=== PATIENT | female | born 1940 | race Caucasian/White ===

== ENCOUNTER 2019-07-08 17:17 | Emergency (ER) | payer MEDICARE, OTHER ==
[2019-07-08] MEDS ORDERED: Acetaminophen TAB* 325 MG PO ONE (17:43)
[2019-07-08] MEDS ORDERED: Ibuprofen TAB* 600 MG PO ONE (17:43)
--- NOTE | 2019-07-08 17:43 | ED ---
Lower Extremity - HPI Summary HPI Summary: This patient is a 79 year old female presenting to [facility] with a chief complaint of right knee pain since 5 hours ago. She states she walking up the stairs and her knee buckled and gave out. She states she has had swelling or pain to her right knee since. She states she had prior minor discomfort in the knee, states she can put little wait onto it now. She rates her pain 8/10 in severity. She has a Hx of hypertension. - History of Current Complaint Chief Complaint: EDExtremityLower Stated Complaint: "RT KNEE INJURY PER PT" Time Seen by Provider: 07/08/19 17:31 Hx Obtained From: Patient Severity Initially: Moderate Severity Currently: Moderate Pain Intensity: 8 Pain Scale Used: 0-10 Numeric Associated Signs And Symptoms: Positive: Swelling, Knee Pain - Allergies/Home Medications Allergies/Adverse Reactions: Allergies Allergy/AdvReac Type Severity Reaction Status Date / Time No Known Allergies Allergy Verified 07/08/19 18:32 Home Medications: Home Medications Amlodipine Besylate [Norvasc] 10 mg PO DAILY 07/08/19 [History Confirmed ] Atenolol/Chlorthalidone [Atenolol/Chlorthalidone 50-25 mg-] 1 dose PO DAILY [History Confirmed 07/08/19] Lisinopril 20 mg PO BID 07/08/19 [History Confirmed 07/08/19] Sertraline* [Zoloft*] 50 mg PO DAILY 07/08/19 [History Confirmed 07/08/19] Spironolactone 25 mg PO DAILY 07/08/19 [History Confirmed 07/08/19] PMH/Surg Hx/FS Hx/Imm Hx Endocrine/Hematology History: Denies: Hx Bone Marrow Disease Cardiovascular History: Reports: Hx Hypertension - Cancer History Hx Chemotherapy: No Hx Radiation Therapy: No Infectious Disease History: No Infectious Disease History: Denies: Traveled Outside the [place] in Last 30 Days - Family History Known Family History: Positive: Non-Contributory - Social History Lives: With Family Alcohol Use: Occasionally Hx Substance Use: No Review of Systems Negative: Fever Positive: Other - knee pain All Other Systems Reviewed And Are Negative: Yes Physical Exam - Summary Physical Exam Summary: Constitutional: Well-developed, Well-nourished, Alert, Cooperative Skin: Warm, Dry HENT: Normocephalic; No Racoons eyes; No boudreaux's sign; No abrasion; No contusion; No hemotympanum; No maxilla facial tenderness or instability; Dentition are smooth; No dental trauma; No trismus Eyes: EOM normal, PERRL Neck: Trachea is midline. No stridor; No JVD; No step off; No posterior cervical spine tenderness Cardio: Rhythm regular, rate normal Heart sounds normal; Intact distal pulses; The pedal pulses are 2+ and symmetric. Radial pulses are 2+ and symmetric. Pulmonary/Chest wall: Effort normal; Breath sounds normal; Equal chest rise; No flail segment; No rib tenderness; No sternal tenderness Abd: Soft, Appearance normal. No distension; No tenderness; No palpable pulsatile mass; No Cullens sign; No Butts-Turners sign Musculoskeletal: Full ROM and no tenderness at hips, ankles, shoulders, elbows; No vertebral body tenderness; No paraspinal tenderness; No step off or deformity of the spine; Pelvis is stable to lateral compression and rock. Swelling and tenderness over the right knee. Limited ROM in both flexion and extension. Swelling worse over the medial aspect of the knee. No medial or lateral joint laxity. Negative anterior/posterior Drawer sign. DP/PT pulses 2+. Neuro: Alert, Oriented x3, Strength 5/5 all extremities. : No blood at urethral meatus Psych: Mood and affect Normal Triage Information Reviewed: Yes Vital Signs On Initial Exam: Initial Vitals Temp Pulse Resp BP Pulse Ox 98.8 F 74 16 141/68 98 07/08/19 17:20 07/08/19 17:20 07/08/19 17:20 07/08/19 17:20 07/08/19 17:20 Vital Signs Reviewed: Yes Diagnostics - Vital Signs Vital Signs Temp Pulse Resp BP Pulse Ox 07/08/19 17:20 98.8 F 74 16 141/68 98 - Laboratory Lab Statement: Any lab studies that have been ordered have been reviewed, and results considered in the medical decision making process. - Radiology Knee XR Radiology Interpretation Completed By: ED Physician Summary of Radiographic Findings: No fracture. Pending official radiologist report. Lower Extremity Course/Dx - Course Course Of Treatment: Patient is here after twisting her right knee. Patient had negative x-ray for fracture per my read. Patient likely has internal knee injury. Patient is placed in a knee immobilizer, given crutches, given orthopedic surgery f/u. - Diagnoses Provider Diagnoses: Knee sprain Discharge ED - Sign-Out/Discharge Documenting (check all that apply): Patient Departure - Discharge Patient Received Moderate/Deep Sedation with Procedure: No - Discharge Plan Condition: Stable Disposition: HOME Patient Education Materials: Knee Sprain (ED) Referrals: [facility] Orthopedic Services [Provider Group] Additional Instructions: Follow up with orthopedics. Return to ED with any new or worsening symptoms. Take Ibuprofen for your pain. - Billing Disposition and Condition Condition: STABLE Disposition: Home - Attestation Statements Document Initiated by Scribe: Yes Documenting Scribe: García Antony Provider For Whom Scribe is Documenting (Include Credential): Chinedu Wasserman MD Scribe Attestation: García Montoya scribed for Chinedu Wasserman MD on 07/08/19 at 1846. Scribe Documentation Reviewed: Yes Provider Attestation: The documentation as recorded by the García coffman accurately reflects the service I personally performed and the decisions made by Chinedu serrano MD Status of Scribe Document: Viewed
[2019-07-08 19:04] VITALS: BP 137/66
== END 2019-07-08 18:50 | disposition home or self-care (01) ==
LOC: ED 17:17
DX: S83.91XA Sprain of unspecified site of right knee, initial encounter (principal); X58.XXXA Exposure to other specified factors, initial encounter; Y92.89 Other specified places as the place of occurrence of the external cause; I10 Essential (primary) hypertension; Z79.899 Other long term (current) drug therapy
CPT/HCPCS: 99283; A9270-GY

== ENCOUNTER 2023-02-08 12:04 | Inpatient (IN) ==
[2023-02-08 14:12] LABS: ABS Lymphocytes 0.5 10^3/ul (1.0-4.8); ABS Monocytes 0.4 10^3/ul (0-0.8); ABS Neutrophils 4.6 10^3/ul (1.5-7.7); Eosinophil % 0.1 %; Hematocrit 39 % (35-47); Hemoglobin 12.8 g/dL (12.0-16.0); Lymphocyte % 9.1 %; Mean Corpuscular Hemoglobin 29 pg (27-31); Mean Corpuscular Hgb Conc 33 g/dL (31-36); Mean Corpuscular Volume 87 fL (80-97); Mean Platelet Volume 7.6 fL (7.4-10.4); Platelet Count 142 10^3/uL (150-450); Red Cell Distribution Width 15 % (10-15); White Blood Count 5.5 10^3/uL (3.5-10.8)
[2023-02-08 15:21] LABS: Albumin 3.8 g/dL (3.2-5.2); Albumin/Globulin Ratio 1.7 (1-3); Calcium 8.9 mg/dL (8.6-10.3); Creatinine, Serum 1.21 mg/dL (0.51-0.95); Globulin 2.2 g/dL (2-4); Total Bilirubin 0.8 mg/dL (0.2-1.0); eGFR CKD-EPI 45.3 (>60)
[2023-02-08] MEDS ORDERED: Iodixanol (CONTRAST) 320 MG/ML 100 ML SDV IV ONE (15:26)
[2023-02-08 15:55] LABS: Potassium 4.1 mmol/L (3.5-5.0)
[2023-02-08 16:17] LABS: High Sensitivity Troponin 1 Hr 810 pg/mL (<15)
[2023-02-08] MEDS ORDERED: Heparin DRIP 25,000 UNITS BAG 25,000 UNITS/500 ML BAG IV SCH (16:45)
[2023-02-08] MEDS ORDERED: Heparin 5000 UNITS/ML 1 mL VIAL IV SCH (17:00)
[2023-02-08] MEDS: PTO: OSIMERTINIB MESYLATE 80 MG TABLET (NF) PO SCH (22:22)
[2023-02-08 23:49] LABS: ABS Lymphocytes 0.6 10^3/ul (1.0-4.8); ABS Monocytes 0.5 10^3/ul (0-0.8); ABS Neutrophils 3.8 10^3/ul (1.5-7.7); Eosinophil % 0.7 %; Hematocrit 36 % (35-47); Hemoglobin 11.6 g/dL (12.0-16.0); Lymphocyte % 12.7 %; Mean Corpuscular Hemoglobin 28 pg (27-31); Mean Corpuscular Hgb Conc 33 g/dL (31-36); Mean Corpuscular Volume 85 fL (80-97); Mean Platelet Volume 7.9 fL (7.4-10.4); Nucleated Red Blood Cells % 0.1; Platelet Count 136 10^3/uL (150-450); Red Blood Count 4.18 10^6 /uL (3.70-4.87); Red Cell Distribution Width 15 % (10-15)
[2023-02-09 00:50] LABS: INR 1.17 (0.88-1.18)
[2023-02-09 00:53] LABS: Activated Partial Thrombo Time 187.5 seconds (26.0-38.0)
[2023-02-09] MEDS ORDERED: Oxymetazoline 0.05% NASAL SPR 15 ML BTL BOTH NARES ONE (02:04)
[2023-02-09] MEDS ORDERED: NS 0.9% 1000 ml BAG 1,000 ML IV SCH (02:15)
[2023-02-09 02:29] LABS: ABS Lymphocytes 0.6 10^3/ul (1.0-4.8); ABS Monocytes 0.6 10^3/ul (0-0.8); ABS Neutrophils 3.7 10^3/ul (1.5-7.7); Eosinophil % 0.6 %; Hematocrit 35 % (35-47); Lymphocyte % 12.3 %; Mean Corpuscular Hemoglobin 29 pg (27-31); Mean Corpuscular Hgb Conc 34 g/dL (31-36); Mean Corpuscular Volume 86 fL (80-97); Mean Platelet Volume 7.9 fL (7.4-10.4); Nucleated Red Blood Cells % 0.1; Platelet Count 131 10^3/uL (150-450); Red Blood Count 4.07 10^6 /uL (3.70-4.87); Red Cell Distribution Width 15 % (10-15); White Blood Count 4.9 10^3/uL (3.5-10.8)
[2023-02-09] MEDS: PTO: OSIMERTINIB MESYLATE 80 MG TABLET (NF) PO SCH (09:00)
[2023-02-09] MEDS: NS 0.9% 1000 ml BAG 1,000 ML IV SCH ×3 (11:08→20:20)
[2023-02-10] MEDS: NS 0.9% 1000 ml BAG 1,000 ML IV SCH ×2 (03:28→11:11)
[2023-02-10] MEDS: PTO: OSIMERTINIB MESYLATE 80 MG TABLET (NF) PO SCH (09:30)
[2023-02-10 10:44] VITALS: BP 128/47
== END 2023-02-10 15:03 | disposition home or self-care (01) | DRG 176 ==
LOC: EDHOLD 12:04 → ED 12:04 → SUATTDRO 18:44 → MEDTELE 02-09 01:10
PROVIDERS: ADMIT Internal Medicine; ATTEND Internal Medicine